=== PATIENT | female | born 1940 | race Caucasian/White ===

== ENCOUNTER 2019-06-14 17:01 | Emergency (ER) | payer OTHER, MEDICAID ==
[~2019-06-14] VITALS: Ht 157.5 cm; Wt 68.0 kg
--- NOTE | 2019-06-14 17:10 | NUR ---
Patient on [facility] awaiting room assignment
[2019-06-14 17:20] VITALS: BP_SYST 140
--- NOTE | 2019-06-14 17:30 | NUR ---
ER at [facility] examining patient.
--- NOTE | 2019-06-14 17:45 | NUR ---
pt refused care
--- NOTE | 2019-06-14 17:50 | NUR ---
pt refusing Xray and blood draws again.
--- NOTE | 2019-06-14 18:00 | NUR ---
At time of evaluation, Dr. Ross assessed pt able to make decision whether or not accept treatment.
[2019-06-14 18:29] VITALS: BP_SYST 140
--- NOTE | 2019-06-14 18:29 | NUR ---
Patient does not wish to proceed with medical care recommended by . Patient given information related to possible complications, up to and including , which could occur as a result of leaving hospital at this time. Patient verbalizes understanding of risks involved leaving against medical advice. Patient has refused to sign AMA form.
--- NOTE | 2019-06-14 18:35 | NUR ---
Patient given written and verbal discharge instructions and verbalizes understanding. ER MD discussed with patient the results and treatment provided. Patient in stable condition. ID arm band removed. NO Rx given. Patient educated on pain management and to follow up with PMD. Pain Scale 0 Opportunity for questions provided and answered. Medication side effect fact sheet provided.
== END 2019-06-14 18:29 | disposition home or self-care (01) ==
LOC: SED 17:01
DX: M54.5 Low back pain (principal)
CPT/HCPCS: 99283